=== PATIENT | female | born 1985 | race Two or more races ===

== ENCOUNTER 2016-06-11 19:38 | Emergency (ER) | payer MEDICAID ==
[~2016-06-11] VITALS: Ht 157.5 cm; Wt 86.2 kg
[2016-06-11 23:20] VITALS: BP 112/69
== END 2016-06-11 23:44 | disposition home or self-care (01) ==
LOC: ER 19:52
DX: H10.31 Unspecified acute conjunctivitis, right eye (principal)

== ENCOUNTER 2018-02-19 19:54 | Emergency (ER) | payer MEDICAID ==
[~2018-02-19] VITALS: Ht 157.5 cm; Wt 86.2 kg
[2018-02-19 22:37] VITALS: BP 141/72
== END 2018-02-19 22:48 | disposition home or self-care (01) ==
LOC: ER 20:03
DX: F41.9 Anxiety disorder, unspecified (principal); M79.602 Pain in left arm

== ENCOUNTER 2018-10-05 13:10 | Emergency (ER) | payer SELFPAY ==
[~2018-10-05] VITALS: Ht 157.5 cm; Wt 86.2 kg
[2018-10-05 16:02] VITALS: BP 160/73
== END 2018-10-05 17:31 | disposition home or self-care (01) ==
LOC: ER 13:10
DX: H10.021 Other mucopurulent conjunctivitis, right eye (principal)

== ENCOUNTER → 2020-06-16 | Outpatient (CLI) | payer OTHER | END | disposition home or self-care (01) | LOC: LAB 09:42 | PROVIDERS: ATTEND Preventive Medicine Preventive Medicine/Occupational Environmental Medicine | DX: Z02.1 Encounter for pre-employment examination (principal) | CPT/HCPCS: 36415; 86706; 86735; 86762; 86765; 86787 ==

== ENCOUNTER 2020-11-17 18:42 | Emergency (ER) | payer OTHER ==
[~2020-11-17] VITALS: Ht 157.5 cm; Wt 85.7 kg
[2020-11-17 21:31] VITALS: BP 140/86
[2020-11-17 22:19] LABS: Hepatitis B Surface Antibody Positive
[2020-11-17 22:31] LABS: Hepatitis B Surface Antigen Negative (Negative)
== END 2020-11-17 22:44 | disposition home or self-care (01) ==
LOC: ER 18:42
DX: S61.233A Puncture wound without foreign body of left middle finger without damage to nail, initial encounter (principal); W27.3XXA Contact with needle (sewing), initial encounter; Y93.89 Activity, other specified; Y92.89 Other specified places as the place of occurrence of the external cause; Y99.8 Other external cause status
CPT/HCPCS: 36415; 86703; 86706; 86803; 87340

== ENCOUNTER 2021-10-23 16:56 | Emergency (ER) | payer BC, OTHER ==
[~2021-10-23] VITALS: Ht 157.5 cm; Wt 85.3 kg
[2021-10-23] MEDS ORDERED: ALPRAZolam 0.5 MG TAB PO ONE (18:00)
[2021-10-23] MEDS ORDERED: ALPR0.25 PO (19:22)
[2021-10-23 20:18] VITALS: BP 141/84
== END 2021-10-23 20:20 | disposition home or self-care (01) ==
LOC: EEVIPCON 16:56 → ER 16:56
DX: F41.8 Other specified anxiety disorders (principal)
CPT/HCPCS: 71046; 93005

== ENCOUNTER 2022-03-30 07:39 | Emergency (ER) | payer BC ==
[~2022-03-30] VITALS: Ht 157.5 cm; Wt 82.4 kg
[~2022-03-30 07:39] MED LIST: ALPR0.25 PO
[2022-03-30 08:51] VITALS: BP 151/79
[2022-03-30] MEDS ORDERED: ALPRAZolam 0.5 MG TAB PO ONE (09:00)
[2022-03-30] MEDS ORDERED: KETOROLAC TROMETH 60MG/2ML VIAL IM ONE (09:00)
[2022-03-30] MEDS ORDERED: ALPR0.5T PO (09:56)
== END 2022-03-30 10:07 | disposition home or self-care (01) ==
LOC: ER 07:39
DX: F41.1 Generalized anxiety disorder (principal); Z98.51 Tubal ligation status
CPT/HCPCS: 96372; 99283; J1885

== ENCOUNTER → 2022-04-17 | Outpatient (CLI) | payer BC ==
[~2022-04-17] MED LIST changes: +ALPR0.5T PO
[2022-04-17 07:44] LABS: Basophils # (auto) 0.1 10 ^3/uL (0-0.2); Basophils % (auto) 0.9 % (0.0-2.0); Eosinophils # (auto) 0.2 10 ^3/uL (0-0.8); Eosinophils % (auto) 2.6 % (0.0-7.0); Hematocrit 37.2 % (36.0-46.0); Hemoglobin 12.4 g/dL (12.2-16.2); Lymphocytes % (auto) 17.1 % (10.0-50.0); Mean Corpuscular Hemoglobin 28.2 pg (28.0-32.0); Mean Corpuscular Hgb Conc. 33.4 g/dL (32.0-36.0); Mean Corpuscular Volume 84.5 fL (80.0-100.0); Monocytes # (auto) 0.7 10 ^3/uL (0-1.3); Monocytes % (auto) 11.6 % (0.0-12.0); Neutrophils # (auto) 4.1 10 ^3/uL (1.6-8.6); Neutrophils % (auto) 67.8 % (37.0-80.0); Nucleated Red Blood Cells % 0.1 %; Red Cell Distribution Width 14.7 % (11.8-14.3)
[2022-04-17 08:13] LABS: Albumin 3.5 g/dL (3.4-5.0); BUN/Creatinine Ratio 14.5; Calcium 8.6 mg/dL (8.5-10.1); Potassium 3.9 mmol/L (3.5-5.1)
[2022-04-17 08:15] LABS: Bilirubin, Total 0.3 mg/dL (0.2-1.0); Total Protein 7.9 g/dL (6.4-8.2)
== END | disposition home or self-care (01) ==
LOC: LAB 07:24
PROVIDERS: ATTEND Nurse Practitioner Family
DX: Z00.00 Encounter for general adult medical examination without abnormal findings (principal); F41.9 Anxiety disorder, unspecified
CPT/HCPCS: 36415; 80053; 84439; 84443; 85025

== ENCOUNTER → 2022-05-08 | Outpatient (CLI) | payer BC ==
[2022-05-08 08:01] LABS: Follicle Stimulating Hormone 5.97 IU/L (SEE BELOW); Leuteinizing Hormone 5.8 IU/L
== END | disposition home or self-care (01) ==
LOC: LAB 06:05
PROVIDERS: ATTEND Nurse Practitioner Family
DX: R68.82 Decreased libido (principal)
CPT/HCPCS: 82670; 83001; 83002

== ENCOUNTER 2022-09-02 16:09 | Emergency (ER) | payer BC ==
[~2022-09-02] VITALS: Ht 157.5 cm; Wt 83.4 kg
[2022-09-02] MEDS ORDERED: IBU600T PO (20:15)
[2022-09-02] MEDS ORDERED: KETOROLAC TROMETH 30 MG/ML 1ML VIAL IV ONE (20:15)
[2022-09-02] MEDS ORDERED: CYCL-839 PO (20:15)
[2022-09-02 20:30] VITALS: BP 158/96
== END 2022-09-02 20:52 | disposition home or self-care (01) ==
LOC: EEVIPCON 16:09 → ER 16:09
DX: S12.401A Unspecified nondisplaced fracture of fifth cervical vertebra, initial encounter for closed fracture (principal); S43.401A Unspecified sprain of right shoulder joint, initial encounter; S33.5XXA Sprain of ligaments of lumbar spine, initial encounter; F41.9 Anxiety disorder, unspecified; Z98.51 Tubal ligation status; Z98.890 Other specified postprocedural states; V89.2XXA Person injured in unspecified motor-vehicle accident, traffic, initial encounter; Y93.89 Activity, other specified; Y92.89 Other specified places as the place of occurrence of the external cause; Y99.8 Other external cause status
CPT/HCPCS: 72040; 72100; 72125; 73030; 96374; 99285; J1885; L0120

== ENCOUNTER 2025-02-28 16:39 | Inpatient (IN) | payer BC ==
[~2025-02-28] VITALS: Ht 157.5 cm; Wt 83.4 kg
[~2025-02-28 16:39] MED LIST changes: +CYCL-839 PO; +IBU600T PO
--- NOTE | 2025-02-28 16:54 | ECG ---
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
--- NOTE | 2025-02-28 17:29 | ED.PDOC ---
HPI Comments This is a 39 year old female presenting to the ED with chief complaint of chest pain. Patient reports that she has been experiencing left sided chest pressure with associated left arm pain since earlier today. Patient relays that her pain is currently a 6/10. Patient denies any N/V/D, SOB, dizziness, headache, cough, or syncope. Patient states she has been seen before for similar pain in the past. Chief Complaint: Chest Pain Time Seen by MD: 17:26 Primary Care Provider: ETHEL Aponte Notes: Nurses Notes, Medications, Allergies Allergies: Coded Allergies: NO KNOWN ALLERGIES (Unverified , 09/13/14) Home Meds Active Scripts Cyclobenzaprine Hcl (Cyclobenzaprine Hcl) 10 Mg Tab, 10 MG PO Q8HR, #20 TAB As needed for muscle spasm Prov:ALARCONMICHAELALDA Q CHOKE REAMER 09/02/22 Ibuprofen Micronized (MOTRIN TABLET) 600 Mg Tb, 600 MG PO Q6HR PRN, #30 TAB as neede for pain Prov:MICHAEL ALARCONALDA Q CHOKE REAMER 09/02/22 Alprazolam (Xanax) 0.5 Mg Tb, 1 TAB PO BID, #14 TAB Prov:JARVIS SWANSON 03/30/22 Alprazolam (Xanax) 0.25 Mg Tb, 1 TAB PO DAILY, #30 TAB Prov:OG CUADRA MD 10/23/21 Information Source: Patient Mode of Arrival: Ambulatory Severity: Moderate Timing: Hours Duration: Since onset Prehospital treatment: None Location: Chest (L) Radiation: Arm (L) Quality: Pressure Onset: At Rest PE Risk Factors: None History of: Similar pain in past Past Medical History PAST MEDICAL HISTORY: Anxiety Surgical History: , Tubal Ligation 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 WORKER 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: No Pertinent MUFFLE WORKER History Family History Family History: Reviewed,noncontributory to illness, Family hx of DM, Family hx of Cancer, Family hx of heart marly, Family hx of HTN Social History Smoker: Non-Smoker Alcohol: Rarely Drugs: Denies Drug Use Lives In: Home Constitutional: denies: chills, diaphoresis, fatigue, fever, malaise, sweats, weakness, others EENTM: denies: blurred vision, double vision, ear bleeding, ear discharge, ear drainage, ear pain, ear ringing, eye pain, eye redness, hearing loss, mouth pain, mouth swelling, nasal discharge, nose bleeding, nose congestion, nose pain, photophobia, tearing, throat pain, throat swelling, voice changes, others Respiratory: denies: cough, hemoptysis, orthopnea, SOB at rest, shortness of breath, SOB with excertion, stridor, wheezing, others Cardiovascular: reports: chest pain, left arm pain; denies: dizzy spells, diaphoresis, Dyspnea on exertion, edema, irregular heart beat, lightheadedness, palpitations, PND, syncope, others Gastrointestinal: denies: abdomen distended, abdominal pain, blood streaked bowels, constipated, diarrhea, dysphagia, difficulty swallowing, hematemesis, melena, nausea, poor appetite, poor fluid intake, rectal bleeding, rectal pain, vomiting, others Genitourinary: denies: abnormal vagina bleeding, burning, dyspareunia, dysuria, flank pain, frequency, hematuria, incontinence, pain, , vagina discharge, urgency, others Neurological: denies: dizziness, fainting, headache, left sided numbness, left sided weakness, numbness, paresthesia, pre-existing deficit, right sided numbness, right sided weakness, seizure, speech problems, tingling, tremors, weakness, others Musculoskeletal: denies: back pain, gout, joint pain, joint swelling, muscle pain, muscle stiffness, neck pain, others Integumetry: denies: bruises, change in color, change in hair/nails, dryness, laceration, lesions, lumps, rash, wounds, others Allergic/Immunocompromised: denies: Difficulty Healing, Frequent Infections, Hives, Itching, others Hematologic/Lymphatic: denies: anemia, blood clots, easy bleeding, easy bruising, swollen glands, others Endocrine: denies: excessive hunger, excessive sweating, excessive thirst, excessive urination, flushing, intolerance to cold, intolerance to heat, unexplained weight gain, unexplained weight loss, others Psychiatric: denies: anxiety, bipolar disorder, depression, hopeless, panic disorder, schizophrenia, sleepless, suicidal, others All Other Systems: Reviewed and Negative Physical Exam General Appearance: Moderate Distress HEENT: Normal ENT Inspection, Pharynx Normal, TMs Normal Neck: Full Range of Motion, Non-Tender, Normal, Normal Inspection Respiratory: Chest Non-Tender, Lungs Clear, No Accessory Muscle Use, No Respiratory Distress, Normal Breath Sounds Cardiovascular: No Edema, No JVD, No Murmur, No Gallop, Normal Peripheral Pulses, Regular Rate/Rhythm Breast Exam: Deferred Gastrointestinal: No Organomegaly, Non Tender, No Pulsatile Mass, Normal Bowel Sounds, Soft Genitalia: Deferred Pelvic: Deferred Rectal: Deferred Extremities: No calf tenderness, Normal capillary refill, Normal inspection, Normal range of motion, Non-tender, No pedal edema Musculoskeletal : Apperance: Normal Neurologic: Alert, field service manager II-XII nml as Tested, No Motor Deficits, Normal Affect, Normal Mood, No Sensory Deficits Cerebellar Function: Normal Reflexes: Normal Skin: Dry, Normal Color, Warm Lymphatic: No Adenopathy EKG EKG : Pulse Rate (adult): 67 [place]: Normal Cardiac Rhythm: NSR Block: None ST: Nonsp Was a procedure done? Was a procedure done?: No CP Differential Dx Differential Diagnosis: Angina, AR, Pulmonary Embolus Differential Diagnosis: CHF Differential Diagnosis: Pericarditis X-Ray, Labs, Meds, VS Vital Signs Date Time Temp Pulse Resp B/P (MAP) Pulse Ox O2 Delivery O2 Flow Rate FiO2 02/28/25 16:49 98.5 86 15 181/104 (129) 96 98.5 02/28/25 16:45 98.5 67 15 178/95 100 98.5 02/28/25 16:44 61 Lab Test 02/28/25 19:43 02/28/25 17:45 02/28/25 16:49 Range/Units Troponin I High Sensitivity Pending < 3 L < 3 L </=34 ng/L White Blood Count 8.3 4.4-10.8 10^3/uL Red Blood Count 4.18 4.0-5.20 10^6/uL Hemoglobin 11.0 L 12.2-16.2 g/dL Hematocrit 33.3 L 36.0-46.0 % Mean Corpuscular Volume 79.7 L 80.0-100.0 fL Mean Corpuscular Hemoglobin 26.3 L 28.0-32.0 pg Mean Corpuscular Hemoglobin Concent 33.0 32.0-36.0 g/dL Red Cell Distribution Width 15.6 H 11.8-14.3 % Platelet Count 356 140-450 10^3/uL Mean Platelet Volume 8.0 6.9-10.8 fL Neutrophils (%) (Auto) 51.2 37.0-80.0 % Lymphocytes (%) (Auto) 38.2 10.0-50.0 % Monocytes (%) (Auto) 8.4 0.0-12.0 % Eosinophils (%) (Auto) 1.5 0.0-7.0 % Basophils (%) (Auto) 0.7 0.0-2.0 % Neutrophils # (Auto) 4.2 1.6-8.6 10 ^3/uL Lymphocytes # (Auto) 3.2 0.4-5.4 10 ^3/uL Monocytes # (Auto) 0.7 0-1.3 10 ^3/uL Eosinophils # (Auto) 0.1 0-0.8 10 ^3/uL Basophils # (Auto) 0.1 0-0.2 10 ^3/uL Nucleated Red Blood Cells 0.3 % D-Dimer, Quantitative 0.48 0.0-0.49 mg/L FEU Sodium Level 141 136-145 mmol/L Potassium Level 4.0 3.5-5.1 mmol/L Chloride Level 107 98-107 mmol/L Carbon Dioxide Level 26 20-31 mmol/L Anion Gap 8 5-15 Blood Urea Nitrogen 9 9-23 mg/dL Creatinine 0.54 L 0.550-1.02 mg/dL Glomerular Filtration Rate Calc 119 >90 mL/min BUN/Creatinine Ratio 16.7 10.0-20.0 Serum Glucose 89 74-106 mg/dL Calcium Level 8.9 8.7-10.4 mg/dL Current Medications Medications (Trade) Dose Ordered Sig/Marcia Route Start Time Stop Time Status Last Admin Aspirin 162 mg ONCE ONCE PO 02/28/25 17:30 02/28/25 17:31 DC 02/28/25 17:47 The patient was given aspirin 162 mg by mouth The patient's CBC is within normal limits except for anemia with an 11 hemoglobin and hematocrit of 33.4 The patient's troponin x2 is negative The D-dimer is negative The patient was given an IV Hep-Lock The patient is being admitted to the hospitalist The patient is still having persistent chest pain so we are going to have a Cardiology consult as well. Images Reviewed?: Images reviewed and evaluated by me Time of 1ST Reevaluation: 19:52 Reevaluation 1ST: Unchanged Patient Education/Counseling: Diagnosis, Treatment, Prognosis Family Education/Counseling: No Family Present SEPSIS Sepsis Screen Date sepsis recognized/suspect: Feb 28, 2025 Time Sepsis recognized/suspect: 1648 Recent Procedure: No On Antibiotic Therapy: No Respiratory Rate >20: No Heart Rate >90: No Temp<36 C (96.8 F) or >38.3 C: No SBP <90 or MAP <65 mmHG: No New Acute Mental Status Change: No Is the patient on CPAP, BIPAP,: No Physician Orders Troponin-I Hs (02/28/25 19:43) Electrocardigram (02/28/25 19:43) Chest Two Views Routine (02/28/25 17:19) Vital Signs Date Time Temp Pulse Resp B/P (MAP) Pulse Ox O2 Delivery O2 Flow Rate FiO2 02/28/25 16:49 98.5 86 15 181/104 (129) 96 98.5 02/28/25 16:45 98.5 67 15 178/95 100 98.5 02/28/25 16:44 61 Laboratory Tests Test 02/28/25 16:49 White Blood Count 8.3 10^3/uL (4.4-10.8) Medications Medications Dose Ordered Sig/Marcia Route Start Time Stop Time Status Last Admin Dose Admin Aspirin 162 mg ONCE ONCE PO 02/28/25 17:30 02/28/25 17:31 DC 02/28/25 17:47 Departure 1 Departure Time of Disposition: 19:52 Impression: Primary Impression: Acute chest pain Additional Impression: Acute myocardial ischemia Disposition: 09 ADMITTED INPATIENT Admit to: Tele Condition: Fair Critical Care Note Critical Care Time?: Yes (45 min-critical care time only) Stability Stability form required: Yes Unstable for transfer: Telemetry monitoring (Telemetry monitoring required), ED Physician Assesment (Clinical assesment) Heart Score Heart Score: Heart Score Response (Comments) Value History Moderate Suspicious 1 EKG Normal 0 Age <45 0 Risk Factors No known risk factors 0 Troponin Normal limit 0 Total 1 I personally scribed for OG CUADRA MD ([email or web address]) on 02/28/25 at 17:29. Electronically submitted by Tai Peterson [email or web address]). OG CUADRA MD Feb 28, 2025 17:29
--- NOTE | 2025-02-28 17:32 | ECG ---
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
[2025-02-28 17:36] LABS: Potassium 4.0 mmol/L (3.5-5.1); Sodium 141 mmol/L (136-145)
[2025-02-28 17:37] LABS: Anion Gap 8 (5-15); Carbon Dioxide 26 mmol/L (20-31)
[2025-02-28 17:38] LABS: Calcium 8.9 mg/dL (8.7-10.4)
[2025-02-28 17:42] LABS: Glucose 89 mg/dL (74-106); Hematocrit 33.3 % (36.0-46.0); Hemoglobin 11.0 g/dL (12.2-16.2); Mean Corpuscular Hemoglobin 26.3 pg (28.0-32.0); Mean Corpuscular Volume 79.7 fL (80.0-100.0); Nucleated Red Blood Cells % 0.3 %
[2025-02-28 17:43] LABS: BUN/Creatinine Ratio 16.7 (10.0-20.0)
[2025-02-28 17:46] LABS: Blood Urea Nitrogen 9 mg/dL (9-23); Chloride 107 mmol/L (98-107)
--- NOTE | 2025-02-28 19:04 | DVH ---
XY CHEST TWO VIEWS ROUTINE CLINICAL HISTORY: CP COMPARISON: CHEST TWO VIEWS ROUTINE on DOS: 10/23/21, CXR2 on DOS: 10/23/21 TECHNIQUE: Frontal and lateral view of the chest was obtained FINDINGS: Lines and Tubes: None Lungs: No focal consolidation. Pleura: No effusion. No pneumothorax. Cardiomediastinal contours: Unremarkable Bones: No acute osseous abnormality. IMPRESSION: 1. No acute cardiopulmonary disease.
[2025-02-28] MEDS ORDERED: hydrOXYzine 25 MG TAB or CAP PO PRN (20:45)
[2025-02-28] MEDS ORDERED: ONDANSETRON HCL 4 MG/2 ML VIAL IV PRN (20:45)
[2025-02-28] MEDS ORDERED: HYDROcodone-ACET 5/325MG TAB PO PRN (20:45)
[2025-02-28 21:08] LABS: Alanine Aminotransferase 17 U/L (7-40); Albumin 4.5 g/dL (3.2-4.8); Alkaline Phosphatase 79 U/L (46-116); Magnesium 1.9 mg/dL (1.6-2.6); Total Protein 8.0 g/dL (5.7-8.2)
[2025-02-28 21:09] LABS: Bilirubin, Direct < 0.1 mg/dL (<0.3); Bilirubin, Total 0.2 mg/dL (0.2-1.0)
[2025-02-28] MEDS: LOSARTAN POTASSIUM 25 MG TAB PO ONE (22:21)
--- NOTE | 2025-02-28 22:50 | DVHINCON2 ---
Date of service: Feb 28, 2025 Referring Physician Blaire Reason for Consultation Chest pain History of Present Illness This is a 39 year old female with a PMH of anxiety who presented to the ED with a complaint of chest pain. Patient reports that she has been experiencing left sided chest pressure with associated left arm pain since earlier today. Patient relays that her pain is currently a 6/10. Patient states she has been seen before for similar pain in the past. TROP is negative. EKG is NSR at 67.Chest x- ray showed NAD. Patient was admitted to the hospital. I am asked to consult on this patient. Allergies: Coded Allergies: NO KNOWN ALLERGIES (Unverified , 09/13/14) Home Meds Active Scripts Cyclobenzaprine Hcl (Cyclobenzaprine Hcl) 10 Mg Tab, 10 MG PO Q8HR, #20 TAB As needed for muscle spasm Prov:RACHEL ALARCONA Q CERTIFIED SCRUM MASTER 09/02/22 Ibuprofen Micronized (MOTRIN TABLET) 600 Mg Tb, 600 MG PO Q6HR PRN, #30 TAB as neede for pain Prov:JOSÉ LUIS ALARCON Q CERTIFIED SCRUM MASTER 09/02/22 Alprazolam (Xanax) 0.5 Mg Tb, 1 TAB PO BID, #14 TAB Prov:JARVIS SWANSON 03/30/22 Alprazolam (Xanax) 0.25 Mg Tb, 1 TAB PO DAILY, #30 TAB Prov:OG CUADRA MD 10/23/21 Current Medications Current Medications Medications (Trade) Dose Ordered Sig/Marcia Route PRN Reason Start Time Stop Time Status Last Admin Acetaminophen/ Hydrocodone Bitart ([place] 5/325MG Tab) 1 tab Q4HP PRN PO MODERATE PAIN (4-6 PAIN SCALE) 02/28/25 20:45 Ondansetron HCl (Zofran) 4 mg Q4HP PRN IV NAUSEA / VOMITING 02/28/25 20:45 Acetaminophen (Tylenol Tablet) 650 mg Q6HP PRN PO PAIN SCALE 1-3 OR TEMP>100.4 02/28/25 20:45 Losartan Potassium (Cozaar Tablet) 25 mg DAILY PO 03/01/25 10:00 Hydralazine HCl (Apresoline Injection) 10 mg Q6HP PRN IV SBP>170 02/28/25 20:45 Hydroxyzine Pamoate (Vistaril Oral) 25 mg Q6HP PRN PO FOR ITCHING 02/28/25 20:45 Review of Systems Constitutional: denies: chills, diaphoresis, fatigue, fever, malaise, sweats, weakness, others EENTM: denies: blurred vision, double vision, ear bleeding, ear discharge, ear drainage, ear pain, ear ringing, eye pain, eye redness, hearing loss, mouth pain, mouth swelling, nasal discharge, nose bleeding, nose congestion, nose pain, photophobia, tearing, throat pain, throat swelling, voice changes, others Respiratory: denies: cough, hemoptysis, orthopnea, SOB at rest, shortness of breath, SOB with excertion, stridor, wheezing, others Cardiovascular: reports: chest pain, left arm pain; denies: dizzy spells, diaphoresis, Dyspnea on exertion, edema, irregular heart beat, lightheadedness, palpitations, PND, syncope, others Gastrointestinal: denies: abdomen distended, abdominal pain, blood streaked bowels, constipated, diarrhea, dysphagia, difficulty swallowing, hematemesis, melena, nausea, poor appetite, poor fluid intake, rectal bleeding, rectal pain, vomiting, others Genitourinary: denies: abnormal vagina bleeding, burning, dyspareunia, dysuria, flank pain, frequency, hematuria, incontinence, pain, , vagina discharge, urgency, others Neurological: denies: dizziness, fainting, headache, left sided numbness, left sided weakness, numbness, paresthesia, pre-existing deficit, right sided numbness, right sided weakness, seizure, speech problems, tingling, tremors, weakness, others Musculoskeletal: denies: back pain, gout, joint pain, joint swelling, muscle pain, muscle stiffness, neck pain, others Integumetry: denies: bruises, change in color, change in hair/nails, dryness, laceration, lesions, lumps, rash, wounds, others Allergic/Immunocompromised: denies: Difficulty Healing, Frequent Infections, Hives, Itching, others Hematologic/Lymphatic: denies: anemia, blood clots, easy bleeding, easy bruising, swollen glands, others Endocrine: denies: excessive hunger, excessive sweating, excessive thirst, excessive urination, flushing, intolerance to cold, intolerance to heat, unexp lained weight gain, unexplained weight loss, others Psychiatric: denies: anxiety, bipolar disorder, depression, hopeless, panic disorder, schizophrenia, sleepless, suicidal, others All Other Systems: Reviewed and Negative Vital Signs Vital Signs Date Time Temp Pulse Resp B/P (MAP) Pulse Ox O2 Delivery O2 Flow Rate FiO2 02/28/25 20:35 97.9 66 17 178/88 (118) 100 97.9 Physical Exam GENERAL: Alert and oriented x 3. No acute distress. EYES: PERRL, EOMI. Anicteric. HENT: Moist mucous membranes. LUNGS: Clear to auscultation bilaterally. CARDIOVASCULAR: Regular rate and rhythm. ABDOMEN: Soft, nontender and nondistended. EXTREMITIES: No edema. NEUROLOGIC: No focal neurological deficits. SKIN: Warm, dry. Labs/Diagnostic Data Labs Test 02/28/25 19:43 02/28/25 16:49 Range/Units Magnesium Level 1.9 1.6-2.6 mg/dL Total Bilirubin 0.2 0.2-1.0 mg/dL Direct Bilirubin < 0.1 <0.3 mg/dL Aspartate Amino Transferase (AST) 17 13-40 U/L Alanine Aminotransferase (ALT) 17 7-40 U/L Alkaline Phosphatase 79 46-116 U/L Troponin I High Sensitivity < 3 L </=34 ng/L Total Protein 8.0 5.7-8.2 g/dL Albumin 4.5 3.2-4.8 g/dL White Blood Count 8.3 4.4-10.8 10^3/uL Red Blood Count 4.18 4.0-5.20 10^6/uL Hemoglobin 11.0 L 12.2-16.2 g/dL Hematocrit 33.3 L 36.0-46.0 % Mean Corpuscular Volume 79.7 L 80.0-100.0 fL Mean Corpuscular Hemoglobin 26.3 L 28.0-32.0 pg Mean Corpuscular Hemoglobin Concent 33.0 32.0-36.0 g/dL Red Cell Distribution Width 15.6 H 11.8-14.3 % Platelet Count 356 140-450 10^3/uL Mean Platelet Volume 8.0 6.9-10.8 fL Neutrophils (%) (Auto) 51.2 37.0-80.0 % Lymphocytes (%) (Auto) 38.2 10.0-50.0 % Monocytes (%) (Auto) 8.4 0.0-12.0 % Eosinophils (%) (Auto) 1.5 0.0-7.0 % Basophils (%) (Auto) 0.7 0.0-2.0 % Neutrophils # (Auto) 4.2 1.6-8.6 10 ^3/uL Lymphocytes # (Auto) 3.2 0.4-5.4 10 ^3/uL Monocytes # (Auto) 0.7 0-1.3 10 ^3/uL Eosinophils # (Auto) 0.1 0-0.8 10 ^3/uL Basophils # (Auto) 0.1 0-0.2 10 ^3/uL Nucleated Red Blood Cells 0.3 % D-Dimer, Quantitative 0.48 0.0-0.49 mg/L FEU Sodium Level 141 136-145 mmol/L Potassium Level 4.0 3.5-5.1 mmol/L Chloride Level 107 98-107 mmol/L Carbon Dioxide Level 26 20-31 mmol/L Anion Gap 8 5-15 Blood Urea Nitrogen 9 9-23 mg/dL Creatinine 0.54 L 0.550-1.02 mg/dL Glomerular Filtration Rate Calc 119 >90 mL/min BUN/Creatinine Ratio 16.7 10.0-20.0 Serum Glucose 89 74-106 mg/dL Calcium Level 8.9 8.7-10.4 mg/dL Assessment Chest pain. Anxiety. Plan/Recommendation I agree with your ongoing assessment and care of plan. Echocardiogram. [place] for pain management. IV Hydralazine for SBP >170. Losartan. Additional plan as per the hospital course. A total of 45 minutes was spent reviewing the patient record, examining the patient, making a diagnostic and therapeutic plan, discussing this plan with medical personnel, following up on diagnostic studies and following the patient for clinical stability excluding any and all procedures. At least 50% of this time was spent in direct, [id number]-[id number] contact. Plan discussed with: Patient LIN VICKERS MD Feb 28, 2025 21:40
[2025-02-28 23:07] VITALS: BP 166/92; PULSE 56; RESP 17; TEMP 98.1; O2SAT 100
[2025-02-28] MEDS: hydrALAZINE HCL 20 MG/ML VL IV PRN (23:29)
[2025-02-28 23:30] VITALS: PULSE 100; RESP 18; O2SAT 99
[2025-03-01] VITALS (8 sets, daily range): BP systolic 120–137; BP diastolic 67–90; PULSE 55–79; RESP 16–18; TEMP 97.7–98.3; O2SAT 97–100
--- NOTE | 2025-03-01 01:46 | DVHHPRES ---
History of Present Illness Resident Creating Document: DMITRY CABRERA RESIDENT History of Present Illness 39-year-old female with a past medical history of anxiety has come to the emergency department due to chest pain from 3:00 p.m. today(02/28/2025). Patient reports that she was sitting down when she had acute substernal dull a cristina pain, lasting 15 minutes, 5 /10 in intensity, radiating to the left shoulder with no aggravating or relieving factors. She denies any shortness of breath, nausea, vomiting, change of medication, fever, chills but admits to a new stressor in her life which has been taking a toll on her health. Patient was given aspirin in the emergency department which she reports did not help and the chest pain has been intermittent since the afternoon. Blood pressure on admission was 181/104 mmHg, temp 98.5, HR 67, SpO2 96% in room air. D-dimer was negative, troponins were negative and chest x-ray showed no acute cardiopulmonary changes. We are admitting the patient for hypertensive urgency and further management. Past medical history: anxiety Past surgical history: Tubal ligation, CS x4 Social history: Patient denies smoking, drinking alcohol or taking any illicit drugs Family history: Reviewed and noncontributory to the management of this case PCP: Dr. Evelyn Pritchard Allergies: None Code status: Full code Review of Systems Constitutional: No: Fever, Chills, Sweats, Weakness, Malaise, Other Eyes: No: Pain, Vision change, Conjunctivae inflammation, Eyelid inflammation, Other, Redness ENT: No: Ear pain, Ear discharge, Nose pain, Nose discharge, Nose congestion, Mouth pain, Mouth swelling, Throat pain, Throat swelling, Other Respiratory: No: Cough, Dry, Shortness of breath, SOB with excertion, Wheezing, Hemoptysis, Pleuritic Pain, Sputum, Wheezing, Other Cardiovascular: Chest Pain; No: Palpitations, Orthopnea, Paroxysmal Noc. Dyspnea, Edema, Lt Headedness, Other Gastrointestinal: No: Nausea, Vomiting, Abdominal Pain, Diarrhea, Constipation, Melena, Hematochezia, Other Genitourinary: No Dysuria, No Frequency, No Incontinence, No Hematuria, No Retention, No Other Skin: No: Rash, Lesions, Jaundice, Bruising, Other Neurological: No: Weakness, Numbness, Incoordination, Change in speech, Confusion, Seizures, Other Allergies: Coded Allergies: NO KNOWN ALLERGIES (Unverified , 09/13/14) Medications Current Medications Medications Dose Ordered Sig/Marcia Route Start Time Stop Time Status Last Admin Dose Admin Acetaminophen/ Hydrocodone Bitart 1 tab Q4HP PRN PO 02/28/25 20:45 Ondansetron HCl 4 mg Q4HP PRN IV 02/28/25 20:45 Acetaminophen 650 mg Q6HP PRN PO 02/28/25 20:45 Losartan Potassium 25 mg DAILY PO 03/01/25 10:00 Hydralazine HCl 10 mg Q6HP PRN IV 02/28/25 20:45 02/28/25 23:29 10 MG Hydroxyzine Pamoate 25 mg Q6HP PRN PO 02/28/25 20:45 Exam Vital Signs Vital Signs Date Time Temp Pulse Resp B/P (MAP) Pulse Ox O2 Delivery O2 Flow Rate FiO2 03/01/25 01:00 98.0 58 17 135/76 (95) 100 98.0 Exam General Appearance: Alert, Oriented X3, Cooperative, Not in acute distress HEENT: Atraumatic, Mucous membranes moist/pink Respiratory: Clear to auscultation, Normal air movement, No added sounds Cardiovascular: Regular rate, Normal S1, Normal S2, No murmurs Abdominal: Active bowel sounds, Soft, no distention, no tenderness Extremities: No edema, Normal pulses, No tenderness/swelling Skin: No Significant rash, except past surgical scars Neuro: Normal speech, sensorimotor deficits none Psych/Mental Status: Mental status NL, Mood NL Labs/Xrays Labs Test 02/28/25 19:43 02/28/25 16:49 Range/Units Magnesium Level 1.9 1.6-2.6 mg/dL Total Bilirubin 0.2 0.2-1.0 mg/dL Direct Bilirubin < 0.1 <0.3 mg/dL Aspartate Amino Transferase (AST) 17 13-40 U/L Alanine Aminotransferase (ALT) 17 7-40 U/L Alkaline Phosphatase 79 46-116 U/L Troponin I High Sensitivity < 3 L </=34 ng/L Total Protein 8.0 5.7-8.2 g/dL Albumin 4.5 3.2-4.8 g/dL Beta HCG, Quantitative < 0.0 L 1.5-4.2 mIU/mL White Blood Count 8.3 4.4-10.8 10^3/uL Red Blood Count 4.18 4.0-5.20 10^6/uL Hemoglobin 11.0 L 12.2-16.2 g/dL Hematocrit 33.3 L 36.0-46.0 % Mean Corpuscular Volume 79.7 L 80.0-100.0 fL Mean Corpuscular Hemoglobin 26.3 L 28.0-32.0 pg Mean Corpuscular Hemoglobin Concent 33.0 32.0-36.0 g/dL Red Cell Distribution Width 15.6 H 11.8-14.3 % Platelet Count 356 140-450 10^3/uL Mean Platelet Volume 8.0 6.9-10.8 fL Neutrophils (%) (Auto) 51.2 37.0-80.0 % Lymphocytes (%) (Auto) 38.2 10.0-50.0 % Monocytes (%) (Auto) 8.4 0.0-12.0 % Eosinophils (%) (Auto) 1.5 0.0-7.0 % Basophils (%) (Auto) 0.7 0.0-2.0 % Neutrophils # (Auto) 4.2 1.6-8.6 10 ^3/uL Lymphocytes # (Auto) 3.2 0.4-5.4 10 ^3/uL Monocytes # (Auto) 0.7 0-1.3 10 ^3/uL Eosinophils # (Auto) 0.1 0-0.8 10 ^3/uL Basophils # (Auto) 0.1 0-0.2 10 ^3/uL Nucleated Red Blood Cells 0.3 % D-Dimer, Quantitative 0.48 0.0-0.49 mg/L FEU Sodium Level 141 136-145 mmol/L Potassium Level 4.0 3.5-5.1 mmol/L Chloride Level 107 98-107 mmol/L Carbon Dioxide Level 26 20-31 mmol/L Anion Gap 8 5-15 Blood Urea Nitrogen 9 9-23 mg/dL Creatinine 0.54 L 0.550-1.02 mg/dL Glomerular Filtration Rate Calc 119 >90 mL/min BUN/Creatinine Ratio 16.7 10.0-20.0 Serum Glucose 89 74-106 mg/dL Calcium Level 8.9 8.7-10.4 mg/dL B-Type Natriuretic Peptide 28.65 0-100 pg/mL SEPSIS Sepsis Screen Date sepsis recognized/suspect: Feb 28, 2025 Time Sepsis recognized/suspect: 1647 Recent Procedure: No On Antibiotic Therapy: No Respiratory Rate >20: No Heart Rate >90: No Temp<36 C (96.8 F) or >38.3 C: No SBP <90 or MAP <65 mmHG: No New Acute Mental Status Change: No Is the patient on CPAP, BIPAP,: No Physician Orders Admit (02/28/25 20:35) Code Status (02/28/25 20:35) Hydrocodone-Acet 5/325mg Tab ([place] 5/32 (02/28/25 20:45) Ondansetron Hcl (Zofran) (02/28/25 20:45) Complete Blood Count (03/01/25 04:00) Comprehensive Metabolic Panel (03/01/25 04:00) Cardiac Diet-2gna,Lofat,Lochol (03/01/25 Breakfast) Echo 2d Mode Cardiac Dop (02/28/25 20:35) Condition: Fair (02/28/25 20:35) Acetaminophen Tablet (Tylenol Tablet) (02/28/25 20:45) Notify Md Of Changes From Base (02/28/25 20:35) Confectionery Cooker For 24 Hours (02/28/25 20:35) Emergency Dysrhythmia Protocol (02/28/25 20:35) Losartan Tablet (Cozaar Tablet) (03/01/25 10:00) Hydralazine Injection (Apresoline Inject (02/28/25 20:45) Urinalysis (02/28/25 20:35) * Cardiology Consult (02/28/25 20:35) Hydroxyzine Oral (Vistaril Oral) (02/28/25 20:45) Vital Signs Date Time Temp Pulse Resp B/P (MAP) Pulse Ox O2 Delivery O2 Flow Rate FiO2 03/01/25 01:00 98.0 58 17 135/76 (95) 100 98.0 02/28/25 23:29 166/92 02/28/25 23:07 98.1 56 17 166/92 (116) 100 98.1 02/28/25 22:21 159/107 02/28/25 20:35 97.9 66 17 178/88 (118) 100 97.9 02/28/25 19:54 67 Laboratory Tests Test 02/28/25 16:49 White Blood Count 8.3 10^3/uL (4.4-10.8) Medications Medications Dose Ordered Sig/Marcia Route Start Time Stop Time Status Last Admin Dose Admin Aspirin 162 mg ONCE ONCE PO 02/28/25 17:30 02/28/25 17:31 DC 02/28/25 17:47 162 MG Hydralazine HCl 10 mg Q6HP PRN IV 02/28/25 20:45 02/28/25 23:29 10 MG Losartan Potassium 25 mg ONCE ONCE PO 02/28/25 20:45 02/28/25 21:12 DC 02/28/25 22:21 25 MG Assessment/Plan Assessment/Plan #Hypertensive urgency #Chest pain due to above -Troponins negative -EKG -telemetry -UA -D-dimer 0.48 -BNP 28.65 -beta-hCG negative -Aspirin 162 mg p.o. once -Pain control with: -acetaminophen 650 mg p.o. q.6 PRN for mild pain -[place] 5/325 mg p.o. q.4 PRN for moderate pain -losartan 25 mg p.o. daily -hydralazine 10 mg IV q.6 PRN SBP> 170 mmHg -echo -Cardiac consult DVT prophylaxis: Lovenox 40 mg subcutaneously daily Diet: Cardiac diet Goals of care discussed with the patient for more than 27 minutes: Full code status Case discussed with Dr. Todd, patient Plan discussed with: Patient My Orders Orders - DMITRY CABRERA RESIDENT Procedure Category Date Status Time Admit ADMIT 02/28/25 Transmitted 20:35 Code Status CODE 02/28/25 Transmitted 20:35 Hydrocodone-Acet PHA 02/28/25 In Process 5/325mg Tab ([place] 20:45 Ondansetron Hcl PHA 02/28/25 In Process (Zofran) 20:45 Complete Blood Count LAB 03/01/25 Logged 04:00 Comprehensive LAB 03/01/25 Logged Metabolic Panel 04:00 Cardiac DIET 03/01/25 Transmitted Diet-2gna,Lofat,Lochol Breakfast Echo 2d Mode Cardiac US 02/28/25 Logged DOP 20:35 Condition: Fair JESSE 02/28/25 In Process 20:35 Acetaminophen Tablet PHA 02/28/25 In Process (Tylenol Tablet) 20:45 Notify Md Of Changes JESSE 02/28/25 In Process From Base 20:35 Confectionery Cooker For [facility] 02/28/25 In Process 24 Hours 20:35 Emergency Dysrhythmia JESSE 02/28/25 In Process Protocol 20:35 Losartan Tablet PHA 03/01/25 In Process (Cozaar Tablet) 10:00 Hydralazine Injection PHA 02/28/25 In Process (Apresoline Inject 20:45 Urinalysis LAB 02/28/25 Logged 20:35 * Cardiology Consult CONS 02/28/25 Transmitted 20:35 Hydroxyzine Oral PHA 02/28/25 In Process (Vistaril Oral) 20:45 Date of Service: Mar 01, 2025 Billing Provider: CHRISTIAN TODD MD Common Visit Codes: [id number] INP/OBS CARE (HIGH) Secondary Visit Codes: [id number] CARE PLAN 30 MINUTES DMITRY CABRERA RESIDENT Mar 01, 2025 01:46
[2025-03-01 04:15] LABS: Urine Protein, UAD Negative (Negative)
[2025-03-01 06:56] LABS: Hemoglobin 10.9 g/dL (12.2-16.2)
[2025-03-01 06:58] LABS: Hematocrit 33.1 % (36.0-46.0); Mean Corpuscular Hemoglobin 26.4 pg (28.0-32.0); Mean Corpuscular Volume 80.4 fL (80.0-100.0); Nucleated Red Blood Cells % 0.1 %
[2025-03-01 07:16] LABS: Alanine Aminotransferase 14 U/L (7-40); Alkaline Phosphatase 67 U/L (46-116); Anion Gap 8 (5-15); BUN/Creatinine Ratio 9.4 (10.0-20.0); Carbon Dioxide 25 mmol/L (20-31); Glucose 96 mg/dL (74-106); Potassium 4.4 mmol/L (3.5-5.1); Sodium 140 mmol/L (136-145); Total Protein 6.9 g/dL (5.7-8.2)
[2025-03-01 07:17] LABS: Albumin 3.9 g/dL (3.2-4.8)
[2025-03-01 07:19] LABS: Bilirubin, Total 0.3 mg/dL (0.2-1.0); Blood Urea Nitrogen 6 mg/dL (9-23); Calcium 8.3 mg/dL (8.7-10.4); Chloride 107 mmol/L (98-107)
[2025-03-01] MEDS: LOSARTAN POTASSIUM 25 MG TAB PO SCH (10:07)
[2025-03-01] MEDS: ACETAMINOPHEN 325 MG TAB PO PRN (11:55)
--- NOTE | 2025-03-01 15:59 | DVHPNRES ---
Progress Note Date Seen: Mar 01, 2025 Resident Creating Document: CHELSEA ALMARAZ RESIDENT Medical Necessity Reason Pt with a Central, PICC or Fol: No Subjective Review of Systems Freddy León is a 39-year-old female with past medical history of anxiety and hypertension came with complaints of chest pain since 1 day. She rated the chest pain 6 on 10 in intensity, dull, radiating to bilateral shoulders and jaw with no aggravating or alleviating factors. She denies any fever or shortness of breath. She states has been having a lot of anxiety in the past week. She also reports of concomitant acid reflux while she was in the ER. Her blood pressure was 180/100 in the ER. PMHx:anxiety and hypertension PSHx: section, tubal ligation Family history: Not relevant Social history: Denies smoking, alcohol use, illicit drug use Home medication: Not on any home medication Allergic history: No known allergies General: patient denies fever, fatigue, weaknes, sweating, any recent changes in appetite and weight HEENT: No headaches, visiual changes, hearing loss, tinnitus, nasal congestion and discharge, and sore throat. Cardiovascular: Denies palpitations, dyspnea on exertion, orthopnea, or claudication. Complains of chest pain Respiratory: No cough, and wheezing. Gastrointestinal: Denies nausea, vomiting, dysphagia, odynophagia, heartburn, abdominal pain, flatulence, bloating, diarrhea, constipation, change in stool, or blood in stool. Genitourinary: No dysuria, hematuria, discharge, frequency, urgency, nocturia, incontinence, and urinary retention. Endocrine: No heat or cold intolerance, polydipsia, polyuria, and polyphagia. Neurological: No dizziness, extremity weakness and numbness, tremors, gait disturbance, seizures, and memory impairment. Psychiatric: Denies depression, anxiety,or insomnia. Musculoskeletal: Denies neck pain, stiffness and swelling, back pain, muscle weakness, joint pain, stiffness, swelling, or limited range of motion. Skin: No rashes, itching, skin lesion, changes in hair, nail, skin texture and breast. Hematologic/Lymphatic: Denies easy bruising, bleeding tendencies, or lymph node enlargement. Objective vital signs Vital Sign Date Time Temp Pulse Resp B/P (MAP) Pulse Ox O2 Delivery O2 Flow Rate FiO2 03/01/25 13:00 98.0 63 16 137/90 (106) 97 98.0 03/01/25 07:30 Room Air* 0 21 Total Intake and Output 02/28/25 02/28/25 03/01/25 15:00 23:00 07:00 Intake Total 0 ml Balance 0 ml medications Current Medications Medications Dose Ordered Sig/Marcia Route Start Time Stop Time Status Last Admin Dose Admin Acetaminophen/ Hydrocodone Bitart 1 tab Q4HP PRN PO 02/28/25 20:45 Ondansetron HCl 4 mg Q4HP PRN IV 02/28/25 20:45 Acetaminophen 650 mg Q6HP PRN PO 02/28/25 20:45 03/01/25 11:55 650 MG Losartan Potassium 25 mg DAILY PO 03/01/25 10:00 03/01/25 10:07 25 MG Hydralazine HCl 10 mg Q6HP PRN IV 02/28/25 20:45 02/28/25 23:29 10 MG Hydroxyzine Pamoate 25 mg Q6HP PRN PO 02/28/25 20:45 Examination General Appearance: Alert, Oriented X3, Cooperative, No acute distress HEENT: Atraumatic, PERRLA, EOMI, Mucous membrane moist/pink Respiratory: Clear to auscultation, Normal air movement Cardiovascular: Regular rate, Normal S1, Normal S2, No murmurs, no chest wall tenderness Abdominal: Normal bowel sounds, Soft, No tenderness, No hepatospenomegaly, No masses Extremities: No clubbing, No cyanosis, No edema, Normal pulses, No tenderness/swelling Skin: No rashes, No breakdown, No significant lesion Neuro: Normal gait, Normal speech, Strength at 5/5 X4 ext, Normal tone, Sensation intact, Cranial nerves 3-12 NL, Reflexes 2+ Psych/Mental Status: Mental status NL, Mood NL laboratory and microbiology Laboratory Tests 03/01/25 06:22 Test 03/01/25 06:22 Range/Units Serum Glucose 96 74-106 mg/dL Problem List/Assessment/Plan Problem List/Assessment/Plan Assessment/Plan #Hypertensive urgency #Chest pain due to above -Troponins negative -EKG : no signs of infarction -telemetry -UA -D-dimer 0.48 -BNP 28.65 -beta-hCG negative -Aspirin 162 mg p.o. once -Pain control with: -acetaminophen 650 mg p.o. q.6 PRN for mild pain -[place] 5/325 mg p.o. q.4 PRN for moderate pain -losartan 25 mg p.o. daily -hydralazine 10 mg IV q.6 PRN SBP> 170 mmHg -echo -Cardiac consult # Anxiety disorder Follow up with PCP on discharge DVT prophylaxis: Lovenox 40 mg subcutaneously daily Diet: Cardiac diet Case Discussed with Dr. Whiting Plan discussed with: Patient My Orders My Orders Orders - CHELSEA ALMARAZ Procedure Category Date Status Time Complete Blood Count LAB 03/02/25 Verified 04:00 Comprehensive LAB 03/02/25 Verified Metabolic Panel 04:00 Date of Service: Mar 01, 2025 Billing Provider: DELON WHITING MD Common Visit Codes: [id number] INP/OBS CARE(HIGH) CHELSEA ALMARAZ RESIDENT Mar 01, 2025 15:59 DELON WHITING MD Mar 01, 2025 21:13
--- NOTE | 2025-03-01 20:11 | DVHSR ---
APPROVED REPORT EXAM: Two-dimensional and M-mode echocardiogram with Doppler and color Doppler. Blood Pressure: 125/67 mmHg INDICATION Chest Pain RISK FACTORS Height: 5'2, Weight: 182 DIMENSIONS LVDd4.8 (3.8-5.7cm)LA (2D)3.8 (1.9-4.0cm)Aortic Root2.7 (2.0-3.7cm) LVDs3.3 (2.5-4.0cm)LA (MM) (1.9-4.0cm)Aortic Cusp Exc1.7 (1.5-2.0cm) EF (%) 60.0 (55-70%)Rt. Atrium3.0 (1.9-4.0cm)Asc. Aorta cm IVSd0.7 (0.7-1.1cm)RV (D)3.5 (1.8-2.4cm) PWd0.8 (0.7-1.1cm) Mitral Valve MitralMitral Stenosis E wave0.77m/sMV Mean GR.mmHg A wave0.65m/sMV Peak GR.39mmHg E/A ratio1.22D MVAcm2 DECEL [id number] 1/2 [place] Aortic Valve Aortic ValveAortic Stenosis V10.88m/[place] Mean GR.5mmHg V21.42m/[place] Peak GR.8mmHg LVOT Diameter2.0 (1.8-2.4cm)Doppler AVA1.95cm2 Pulmonic Valve V20.93m/s Other Information Technically limited study due to body habitus. Conclusion LV EF IS 65% NORMAL VALVES NORMAL RV FUNCTION NO EFFUSION
--- NOTE | 2025-03-01 23:38 | DVHPN2 ---
Progress Note - Dictate Date Seen: Mar 01, 2025 Medical Necessity Reason Pt with a Central, PICC or Fol: No Subjective Patient was seen and evaluated in follow up. Patient is c/o a headache. UA is negative for infection. Echocardiogram shows LV EF of 65%. Telemetry reviewed. vital signs Vital Sign Date Time Temp Pulse Resp B/P (MAP) Pulse Ox O2 Delivery O2 Flow Rate FiO2 03/01/25 21:00 98.3 79 18 132/76 (94) 98 98.3 03/01/25 07:30 Room Air* 0 21 Total Intake and Output 02/28/25 02/28/25 03/01/25 15:00 23:00 07:00 Intake Total 0 ml Balance 0 ml medications Current Medications Medications Dose Ordered Sig/Marcia Route Start Time Stop Time Status Last Admin Dose Admin Acetaminophen/ Hydrocodone Bitart 1 tab Q4HP PRN PO 02/28/25 20:45 Ondansetron HCl 4 mg Q4HP PRN IV 02/28/25 20:45 Acetaminophen 650 mg Q6HP PRN PO 02/28/25 20:45 03/01/25 19:52 650 MG Losartan Potassium 25 mg DAILY PO 03/01/25 10:00 03/01/25 10:07 25 MG Hydralazine HCl 10 mg Q6HP PRN IV 02/28/25 20:45 02/28/25 23:29 10 MG Hydroxyzine Pamoate 25 mg Q6HP PRN PO 02/28/25 20:45 objective GENERAL: Alert and oriented x 3. No acute distress. EYES: PERRL, EOMI. Anicteric. HENT: Moist mucous membranes. LUNGS: Clear to auscultation bilaterally. CARDIOVASCULAR: Regular rate and rhythm. ABDOMEN: Soft, nontender and nondistended. EXTREMITIES: No edema. NEUROLOGIC: No focal neurological deficits. SKIN: Warm, dry. laboratory and microbiology Laboratory Tests 03/01/25 06:22 Test 03/01/25 06:22 Range/Units Serum Glucose 96 74-106 mg/dL Problem List Chest pain. Anxiety. Assessment/Plan Continued all current supportive medical care. [place] for pain management. IV Hydralazine for SBP >170. Losartan. Additional plan as per the hospital course. Plan discussed with: Patient LIN VICKERS MD Mar 01, 2025 23:38
[2025-03-02] VITALS (8 sets, daily range): BP systolic 105–130; BP diastolic 69–86; PULSE 63–85; RESP 18–20; TEMP 97.1–98.4; O2SAT 97–98
[2025-03-02 07:25] LABS: Hemoglobin 12.1 g/dL (12.2-16.2); Mean Corpuscular Volume 80.0 fL (80.0-100.0)
[2025-03-02 07:27] LABS: Hematocrit 37.4 % (36.0-46.0); Mean Corpuscular Hemoglobin 25.9 pg (28.0-32.0); Nucleated Red Blood Cells % 0.1 %
[2025-03-02 07:44] LABS: Alanine Aminotransferase 17 U/L (7-40); Alkaline Phosphatase 74 U/L (46-116); Anion Gap 10 (5-15); BUN/Creatinine Ratio 14.1 (10.0-20.0); Calcium 9.0 mg/dL (8.7-10.4); Carbon Dioxide 25 mmol/L (20-31); Chloride 105 mmol/L (98-107); Glucose 91 mg/dL (74-106); Potassium 4.3 mmol/L (3.5-5.1); Sodium 140 mmol/L (136-145); Total Protein 7.8 g/dL (5.7-8.2)
[2025-03-02 07:45] LABS: Albumin 4.3 g/dL (3.2-4.8); Blood Urea Nitrogen 9 mg/dL (9-23)
[2025-03-02 07:46] LABS: Bilirubin, Total 0.4 mg/dL (0.2-1.0)
--- NOTE | 2025-03-02 16:14 | DVHPNRES ---
Progress Note Date Seen: Mar 02, 2025 Resident Creating Document: CHELSEA ALMARAZ RESIDENT Medical Necessity Reason Pt with a Central, PICC or Fol: No Subjective Review of Systems Patient was seen at bedside. She reports that she is feeling better. Had an episode of chest pain and throbbing headache yesterday night. Freddy León is a 39-year-old female with past medical history of anxiety and hypertension came with complaints of chest pain since 1 day. She rated the chest pain 6 on 10 in intensity, dull, radiating to bilateral shoulders and jaw with no aggravating or alleviating factors. She denies any fever or shortness of breath. She states has been having a lot of anxiety in the past week. She also reports of concomitant acid reflux while she was in the ER. Her blood pressure was 180/100 in the ER. PMHx:anxiety and hypertension PSHx: section, tubal ligation Family history: Not relevant Social history: Denies smoking, alcohol use, illicit drug use Home medication: Not on any home medication Allergic history: No known allergies General: patient denies fever, fatigue, weaknes, sweating, any recent changes in appetite and weight HEENT: No headaches, visiual changes, hearing loss, tinnitus, nasal congestion and discharge, and sore throat. Cardiovascular: Denies palpitations, dyspnea on exertion, orthopnea, or claudication. Complains of chest pain Respiratory: No cough, and wheezing. Gastrointestinal: Denies nausea, vomiting, dysphagia, odynophagia, heartburn, abdominal pain, flatulence, bloating, diarrhea, constipation, change in stool, or blood in stool. Genitourinary: No dysuria, hematuria, discharge, frequency, urgency, nocturia, incontinence, and urinary retention. Endocrine: No heat or cold intolerance, polydipsia, polyuria, and polyphagia. Neurological: No dizziness, extremity weakness and numbness, tremors, gait disturbance, seizures, and memory impairment. Psychiatric: Denies depression, anxiety,or insomnia. Musculoskeletal: Denies neck pain, stiffness and swelling, back pain, muscle weakness, joint pain, stiffness, swelling, or limited range of motion. Skin: No rashes, itching, skin lesion, changes in hair, nail, skin texture and breast. Hematologic/Lymphatic: Denies easy bruising, bleeding tendencies, or lymph node enlargement. Objective vital signs Vital Sign Date Time Temp Pulse Resp B/P (MAP) Pulse Ox O2 Delivery O2 Flow Rate FiO2 03/02/25 12:56 98.4 74 20 128/86 (100) 98 98.4 03/02/25 07:39 Room Air* 0 21 Total Intake and Output 03/01/25 03/01/25 03/02/25 14:59 22:59 06:59 Intake Total 1100 ml 500 ml Balance 1100 ml 500 ml medications Current Medications Medications Dose Ordered Sig/Mracia Route Start Time Stop Time Status Last Admin Dose Admin Acetaminophen/ Hydrocodone Bitart 1 tab Q4HP PRN PO 02/28/25 20:45 Ondansetron HCl 4 mg Q4HP PRN IV 02/28/25 20:45 Acetaminophen 650 mg Q6HP PRN PO 02/28/25 20:45 03/02/25 09:50 650 MG Losartan Potassium 25 mg DAILY PO 03/01/25 10:00 03/02/25 09:49 25 MG Hydralazine HCl 10 mg Q6HP PRN IV 02/28/25 20:45 02/28/25 23:29 10 MG Hydroxyzine Pamoate 25 mg Q6HP PRN PO 02/28/25 20:45 Examination General Appearance: Alert, Oriented X3, Cooperative, No acute distress HEENT: Atraumatic, PERRLA, EOMI, Mucous membrane moist/pink Respiratory: Clear to auscultation, Normal air movement Cardiovascular: Regular rate, Normal S1, Normal S2, No murmurs, no chest wall tenderness Abdominal: Normal bowel sounds, Soft, No tenderness, No hepatospenomegaly, No masses Extremities: No clubbing, No cyanosis, No edema, Normal pulses, No tenderness/swelling Skin: No rashes, No breakdown, No significant lesion Neuro: Normal gait, Normal speech, Strength at 5/5 X4 ext, Normal tone, Sensation intact, Cranial nerves 3-12 NL, Reflexes 2+ Psych/Mental Status: Mental status NL, Mood NL laboratory and microbiology Laboratory Tests 03/02/25 06:08 Test 03/02/25 06:08 Range/Units Serum Glucose 91 74-106 mg/dL Problem List/Assessment/Plan Problem List/Assessment/Plan Assessment/Plan #Hypertensive urgency #Chest pain due to above -Troponins negative -EKG : no signs of infarction -telemetry -UA -D-dimer 0.48 -BNP 28.65 -beta-hCG negative -Aspirin 162 mg p.o. once -Pain control with: -acetaminophen 650 mg p.o. q.6 PRN for mild pain -[place] 5/325 mg p.o. q.4 PRN for moderate pain -losartan 25 mg p.o. daily -hydralazine 10 mg IV q.6 PRN SBP> 170 mmHg -echo -Cardiac consult # Anxiety disorder Follow up with PCP on discharge DVT prophylaxis: Lovenox 40 mg subcutaneously daily Diet: Cardiac diet Case Discussed with Dr. Whiting Plan discussed with: Patient My Orders My Orders Orders - CHELSEA ALMARAZ Procedure Category Date Status Time Complete Blood Count LAB 03/03/25 Verified 04:00 Basic Metabolic Panel LAB 03/03/25 Verified 04:00 Date of Service: Mar 02, 2025 Billing Provider: DELON WHITING MD Common Visit Codes: [id number] INP/OBS CARE(HIGH) CHELSEA ALMARAZ Mar 02, 2025 16:14 DELON WHITING MD Mar 04, 2025 14:45
--- NOTE | 2025-03-03 00:03 | DVHPN2 ---
Progress Note - Dictate Date Seen: Mar 02, 2025 Medical Necessity Reason Pt with a Central, PICC or Fol: No Subjective Patient was seen and evaluated in follow up. Overnight, the patient reported an episode of chest pain and throbbing headache. Patient states symptoms have since resolved. CBC and CMP are WNL. Telemetry reviewed. vital signs Vital Sign Date Time Temp Pulse Resp B/P (MAP) Pulse Ox O2 Delivery O2 Flow Rate FiO2 03/02/25 12:56 98.4 74 20 128/86 (100) 98 98.4 03/02/25 07:39 Room Air* 0 21 Total Intake and Output 03/01/25 03/01/25 03/02/25 15:00 23:00 07:00 Intake Total 1100 ml 500 ml Balance 1100 ml 500 ml medications Current Medications Medications Dose Ordered Sig/Marcia Route Start Time Stop Time Status Last Admin Dose Admin Acetaminophen/ Hydrocodone Bitart 1 tab Q4HP PRN PO 02/28/25 20:45 Ondansetron HCl 4 mg Q4HP PRN IV 02/28/25 20:45 Acetaminophen 650 mg Q6HP PRN PO 02/28/25 20:45 03/02/25 09:50 650 MG Losartan Potassium 25 mg DAILY PO 03/01/25 10:00 03/02/25 09:49 25 MG Hydralazine HCl 10 mg Q6HP PRN IV 02/28/25 20:45 02/28/25 23:29 10 MG Hydroxyzine Pamoate 25 mg Q6HP PRN PO 02/28/25 20:45 objective GENERAL: Alert and oriented x 3. No acute distress. EYES: PERRL, EOMI. Anicteric. HENT: Moist mucous membranes. LUNGS: Clear to auscultation bilaterally. CARDIOVASCULAR: Regular rate and rhythm. ABDOMEN: Soft, nontender and nondistended. EXTREMITIES: No edema. NEUROLOGIC: No focal neurological deficits. SKIN: Warm, dry. laboratory and microbiology Laboratory Tests 03/02/25 06:08 Test 03/02/25 06:08 Range/Units Serum Glucose 91 74-106 mg/dL Problem List Chest pain. Anxiety. Assessment/Plan Continued all current supportive medical care. [place] for pain management. Losartan. Additional plan as per the hospital course. Plan discussed with: Patient LIN VICKERS MD Mar 02, 2025 16:28
[2025-03-03 01:00] VITALS: BP 118/56; PULSE 63; RESP 18; TEMP 98.2; O2SAT 100
[2025-03-03 05:00] VITALS: BP 117/71; PULSE 78; RESP 18; TEMP 98; O2SAT 98
[2025-03-03 06:07] LABS: Nucleated Red Blood Cells % 0.1 %
[2025-03-03 06:09] LABS: Hematocrit 36.7 % (36.0-46.0); Hemoglobin 11.9 g/dL (12.2-16.2); Mean Corpuscular Hemoglobin 26.1 pg (28.0-32.0); Mean Corpuscular Volume 80.3 fL (80.0-100.0)
[2025-03-03 06:20] LABS: Anion Gap 11 (5-15); Carbon Dioxide 24 mmol/L (20-31); Chloride 103 mmol/L (98-107); Potassium 4.1 mmol/L (3.5-5.1); Sodium 138 mmol/L (136-145)
[2025-03-03 06:21] LABS: Calcium 9.0 mg/dL (8.7-10.4)
[2025-03-03 06:26] LABS: BUN/Creatinine Ratio 12.5 (10.0-20.0); Blood Urea Nitrogen 9 mg/dL (9-23); Glucose 89 mg/dL (74-106)
[2025-03-03 08:00] VITALS: PULSE 67; RESP 16; O2SAT 97
[2025-03-03] MEDS ORDERED: REGADENOSON 0.4 MG/5 ML SYRG IV ONE (08:15)
[2025-03-03 09:00] VITALS: BP 116/74; PULSE 67; RESP 16; TEMP 98; O2SAT 98
--- NOTE | 2025-03-03 09:37 | DVHCARD ---
Cardiology Stress Test [place] Treadmill Stress Test [place] Referring MD: MD Gabino Protocol: Lenny (with cardiolite) Reason for referral: Chest Pain Target heart Rate:@85%: 153 Percent MPHR: 180 METS: 9.5 Resting Heart rate: 80 Resting Blood Pressure: 119/83 Exercise Heart Rate: 166 Exercise Blood Pressure: 158/77 Reason for Termination of Test: Shortness of breath Baseline EKG: NSR Stress EKG: Sinus tachycardia w/o ST-T wave segment changes Functional Capacity: Mildly Decreased Heart Rate Response: Adequate Blood Pressure Response: Hypertensive Clinical response: Non-ischemic Arrhythmia?: No Cardiolite Injected?: Yes ST-T Changes: Non/Minimal Probability of Inducible Ische: Perfusion result pending Comments: Uneventful Lenny protocol. Consider sleep study as outpatient Date of Service: Mar 03, 2025 Billing Provider: ALONA ROSALES Cardiology Common Codes: PROCEDURE ONLY Treadmill W/Cardiolite Nuclear: [id number], INTERP, RPT ALONA ROSALES Mar 03, 2025 09:37
[2025-03-03] MEDS ORDERED: LOS25T GT (10:41)
[2025-03-03 13:00] VITALS: BP 118/74; PULSE 76; RESP 18; TEMP 98.3; O2SAT 98
[2025-03-03] MEDS ORDERED: LOS25T PO (14:33)
--- NOTE | 2025-03-03 14:49 | DVHDSRES ---
Discharge Summary Date of Admission Resident Creating Document: CHELSEA ALMARAZ RESIDENT Feb 28, 2025 at 20:35 Date of Discharge: Mar 03, 2025 Labs/Diagnostic Data: Laboratory Results Test 03/03/25 04:36 03/02/25 06:08 03/01/25 03:00 02/28/25 19:43 White Blood Count 8.5 10^3/uL (4.4-10.8) Red Blood Count 4.57 10^6/uL (4.0-5.20) Hemoglobin 11.9 g/dL (12.2-16.2) Hematocrit 36.7 % (36.0-46.0) Mean Corpuscular Volume 80.3 fL (80.0-100.0) Mean Corpuscular Hemoglobin 26.1 pg (28.0-32.0) Mean Corpuscular Hemoglobin Concent 32.5 g/dL (32.0-36.0) Red Cell Distribution Width 16.0 % (11.8-14.3) Platelet Count 331 10^3/uL (140-450) Mean Platelet Volume 8.0 fL (6.9-10.8) Neutrophils (%) (Auto) 54.1 % (37.0-80.0) Lymphocytes (%) (Auto) 34.8 % (10.0-50.0) Monocytes (%) (Auto) 9.1 % (0.0-12.0) Eosinophils (%) (Auto) 1.4 % (0.0-7.0) Basophils (%) (Auto) 0.6 % (0.0-2.0) Neutrophils # (Auto) 4.6 10 ^3/uL (1.6-8.6) Lymphocytes # (Auto) 3.0 10 ^3/uL (0.4-5.4) Monocytes # (Auto) 0.8 10 ^3/uL (0-1.3) Eosinophils # (Auto) 0.1 10 ^3/uL (0-0.8) Basophils # (Auto) 0 10 ^3/uL (0-0.2) Nucleated Red Blood Cells 0.1 % Sodium Level 138 mmol/L (136-145) Potassium Level 4.1 mmol/L (3.5-5.1) Chloride Level 103 mmol/L (98-107) Carbon Dioxide Level 24 mmol/L (20-31) Anion Gap 11 (5-15) Blood Urea Nitrogen 9 mg/dL (9-23) Creatinine 0.72 mg/dL (0.550-1.02) Glomerular Filtration Rate Calc 108 mL/min (>90) BUN/Creatinine Ratio 12.5 (10.0-20.0) Serum Glucose 89 mg/dL (74-106) Calcium Level 9.0 mg/dL (8.7-10.4) Total Bilirubin 0.4 mg/dL (0.2-1.0) Aspartate Amino Transferase (AST) 17 U/L (13-40) Alanine Aminotransferase (ALT) 17 U/L (7-40) Alkaline Phosphatase 74 U/L (46-116) Total Protein 7.8 g/dL (5.7-8.2) Albumin 4.3 g/dL (3.2-4.8) Thyroid Stimulating Hormone (TSH) 1.21 uIU/mL (0.55-4.78) Urine Color Colorless (Yellow) Urine Clarity Clear (Clear) Urine pH 6.5 (5.0-9.0) Urine Specific [place] 1.009 (1.001-1.035) Urine Protein Negative (Negative) Urine Ketones Negative (Negative) Urine Blood Negative /uL (Negative) Urine Nitrite Negative (Negative) Urine Bilirubin Negative (Negative) Urine Urobilinogen Normal mg/dL (Negative) Urine Leukocyte Esterase Negative /uL (Negative) Urine RBC None seen /hpf (0 - 4) Urine Microscopic WBC < 1 /HPF (0-5) Urine Squamous Epithelial Cells Few /hpf (<5) Urine Bacteria None seen /hpf (None Seen) Urine Glucose Normal mg/dL (Normal) Magnesium Level 1.9 mg/dL (1.6-2.6) Direct Bilirubin < 0.1 mg/dL (<0.3) Troponin I High Sensitivity < 3 ng/L (</=34) Beta HCG, Quantitative < 0.0 mIU/mL (1.5-4.2) Test 02/28/25 16:49 D-Dimer, Quantitative 0.48 mg/L FEU (0.0-0.49) B-Type Natriuretic Peptide 28.65 pg/mL (0-100) Other Laboratory Tests 03/03/25 04:36 Brief Hx & Hospital Course: Freddy León is a 39-year-old female with a history of anxiety and hypertension who presented with one day of dull, non-exertional chest pain rated 6/10, radiating to both shoulders and jaw, without clear aggravating or relieving factors. She denied fever or shortness of breath but reported increased anxiety over the past week and experienced acid reflux while in the ER, where her blood pressure was elevated at 180/100. A chest X-ray showed no cardiopulmonary disease, and a cardiolite stress test was negative following cardiology consultation. The cardiology team recommended an outpatient sleep study, which was discussed with the patient. Her hospital course was uncomplicated, with clinical improvement noted. On discharge, she was asymptomatic with stable vital signs and no need for durable medical equipment. A work/sick note was provided. Medical Conditions treated in hospital: #Hypertensive urgency #Chest pain ACS ruled out, -ve stress test #Anxiety disorder, non on home meds. Needs PCP follow up. #Uncontrolled essential hypertension #Grade I obesity #Yet to rule out obstructive sleep apnea, outpatient sleep study pending. #Medication nonadherence #poor medical follow up. Consults/Reason for consult Cardiology Operations or Procedures [place] [address] Ph: [phone] DIAGNOSTIC IMAGING Diagnostic Imaging Report : [id number] Signed PATIENT: FREDDY LEÓN ACCT: [id number] UNIT: [id number] : 1985 LOC: ER ROOM / BED: / AGE / SEX: 39 / F ADM STATUS: REG ER SERVICE [id number] ORDERING PHYSICIAN: OG CUADRA MD PROCEDURE(s): CXR2 - CHEST TWO VIEWS ROUTINE REASON: CP ORDER NUMBER(s): [id number], ACCESSION NUMBER(s): [id number] CHEST TWO VIEWS ROUTINE CLINICAL HISTORY: CP COMPARISON: CHEST TWO VIEWS ROUTINE on DOS: 10/23/21, CXR2 on DOS: 10/23/21 TECHNIQUE: Frontal and lateral view of the chest was obtained FINDINGS: Lines and Tubes: None Lungs: No focal consolidation. Pleura: No effusion. No pneumothorax. Cardiomediastinal contours: Unremarkable Bones: No acute osseous abnormality. IMPRESSION: 1. No acute cardiopulmonary disease. ATED BY: CHAMP BHAKTA Jr., DO DICTATED DATE/TIME: 02/28/251900 SIGNED BY: CHAMP BHAKTA Jr., SIGNED DATE/TIME: 02/28/251900 CC: [address] [address] Ph: [phone] DIAGNOSTIC IMAGING Diagnostic Imaging Report : [id number] Signed PATIENT: FREDDY LEÓN ACCT: [id number] UNIT: [id number] : 1985 LOC: TELE-CENTR ROOM / BED: 0206T / A AGE / SEX: 39 / F ADM STATUS: ADM IN SERVICE 34 ORDERING PHYSICIAN: DMITRY CABRERA RESIDENT PROCEDURE(s): ECIDC - ECHO 2D MODE CARDIAC DOP REASON: chest pain ORDER NUMBER(s): [id number], ACCESSION NUMBER(s): [id number] APPROVED REPORT EXAM: Two-dimensional and M-mode echocardiogram with Doppler and color Doppler. Blood Pressure: 125/67 mmHg INDICATION Chest Pain RISK FACTORS Height: 5'2, Weight: 182 DIMENSIONS LVDd 4.8 (3.8-5.7cm) LA (2D) 3.8 (1.9-4.0cm) Aortic Root 2.7 (2.0- 3.7cm) LVDs 3.3 (2.5-4.0cm) LA (MM) (1.9-4.0cm) Aortic Cusp Exc 1.7 (1.5- 2.0cm) EF (%) 60.0 (55-70%) Rt. Atrium 3.0 (1.9-4.0cm) Asc. Aorta cm IVSd 0.7 (0.7-1.1cm) RV (D) 3.5 (1.8-2.4cm) PWd 0.8 (0.7-1.1cm) Mitral Valve Mitral Mitral Stenosis E wave 0.77m/s MV Mean GR. mmHg A wave 0.65m/s MV Peak GR. 39mmHg E/A ratio 1.2 2D MVA cm2 DECEL Time 214ms PRESS 1/2 Time ms Aortic Valve Aortic Valve Aortic Stenosis V1 0.88m/s AO Mean GR. 5mmHg V2 1.42m/s AO Peak GR. 8mmHg LVOT Diameter 2.0 (1.8-2.4cm) Doppler DISHA 1.95cm2 Pulmonic Valve V2 0.93m/s Other Information Technically limited study due to body habitus. Conclusion LV EF IS 65% NORMAL VALVES NORMAL RV FUNCTION NO EFFUSION SIGNED BY: LIN VICKERS MD SIGNED DATE/TIME: 03/01/252010 CC: EKG Name: FREDDY LEÓN Acct: [id number] [place] [address] ELECTROCARDIOGRAM REPORT PATIENT: FREDDY LEÓN ACCT: [id number] : 1985 LOC: [facility] AGE / SEX: 39 / F ADM STATUS: ADM IN SERVICE UNIT: [id number] ORDERING PHYSICIAN: OG CUADRA MD PROCEDURE(s): EKG - ELECTROCARDIGRAM ORDER NUMBER(s): [id number], ACCESSION NUMBER(s): [id number] [facility] Test Date: 2025-02-28 Test Time: 17:31:21 Pat Name: FREDDY LEÓN Department: Room: [facility] Gender: F [place] Machine Operator: TAWNY : 1985 Requested By: OG CUADRA Order Number: [id number] Reading MD: Pratima Raymond Measurements Intervals [place] Rate: 63 P: 23 NM: 157 QRS: -13 QRSD: 105 T: 1 QT: 393 QTc: 403 Interpretive Statements Sinus rhythm Left ventricular hypertrophy Borderline T abnormalities, anterior leads Electronically Signed On 03-02-2025 13:37:14 PST by Pratima Raymond Please click the below link to view image of tracing. DICTATED BY:PRATIMA RAYMOND Sr., MD DICTATED DATE/TIME:02/28/25 1731 ELECTRONICALLY SIGNED BY:PRATIMA RAYMOND Sr., MD 03/02/25 1337 ELECTRONICALLY CO-SIGNED BY: Condition at Discharge: Fair Final Diagnosis/Problems List #Hypertensive urgency #Chest pain ACS ruled out, -ve stress test #Anxiety disorder, non on home meds. Needs PCP follow up. #Uncontrolled essential hypertension #Grade I obesity #Yet to rule out obstructive sleep apnea, outpatient sleep study pending. #Medication nonadherence #poor medical follow up. Discharge Disposition: Home Discharge Instruct/Medications Diet: Regular Activity: No Restrictions, As Tolerated Follow Up/Referral: F/u with PCP in 7 days Medications: Losartan 25 mg 1 tab orally everyday Scheduled Losartan Potassium (Losartan Potassium), 25 MG PO DAILY Discharge Statement: "Patient was advised to return to the ER or call 911 if any headaches, dizziness, shortness of breath, chest pain, abdominal pain, bleeding, fevers, or worsening of medical condition. Patient was counseled about treatment plan, medications, possible side effects, patientverbalized understanding. All questions were answered to the best of my ability. This discharge took greater then 30 minutes in planning, reviewing documentation, counseling the patient, and discussing with other team members." ASSESSMENT ASSESSMENT Assessment Hypertensive Urgency Chest pain due to above Date of Service: Mar 03, 2025 Billing Provider: DELON DA SILVA MD Common Visit Codes: 40104-BXH/[id number] DISCH DAY >30min CHELSEA ALMARAZ RESIDENT Mar 03, 2025 14:49 NICKY HAMILTON RESIDENT Mar 03, 2025 18:06 OSEAS WICK RESIDENT Mar 03, 2025 18:42 DELON DA SILVA MD Mar 04, 2025 14:46
[2025-03-03 17:00] VITALS: BP 114/66; PULSE 83; RESP 18; TEMP 98.2; O2SAT 98
--- NOTE | 2025-03-04 00:02 | DVHPN2 ---
Progress Note - Dictate Date Seen: Mar 03, 2025 Medical Necessity Reason Pt with a Central, PICC or Fol: No Subjective Patient was seen and evaluated in follow up. No overnight events. Patient is undergoing cardiac stress test today. Patient denies any cardiac symptoms. Telemetry reviewed. vital signs Vital Sign Date Time Temp Pulse Resp B/P (MAP) Pulse Ox O2 Delivery O2 Flow Rate FiO2 03/03/25 10:14 116/74 03/03/25 09:00 98.0 67 16 98 98.0 03/03/25 08:00 Room Air* 0 21 Total Intake and Output 03/02/25 03/02/25 03/03/25 15:00 23:00 07:00 Intake Total 1280 ml Output Total 1 ml Balance 1279 ml medications Current Medications Medications Dose Ordered Sig/Marcia Route Start Time Stop Time Status Last Admin Dose Admin Acetaminophen/ Hydrocodone Bitart 1 tab Q4HP PRN PO 02/28/25 20:45 Ondansetron HCl 4 mg Q4HP PRN IV 02/28/25 20:45 Acetaminophen 650 mg Q6HP PRN PO 02/28/25 20:45 03/02/25 09:50 650 MG Losartan Potassium 25 mg DAILY PO 03/01/25 10:00 03/03/25 10:14 25 MG Hydralazine HCl 10 mg Q6HP PRN IV 02/28/25 20:45 02/28/25 23:29 10 MG Hydroxyzine Pamoate 25 mg Q6HP PRN PO 02/28/25 20:45 objective GENERAL: Alert and oriented x 3. No acute distress. EYES: PERRL, EOMI. Anicteric. HENT: Moist mucous membranes. LUNGS: Clear to auscultation bilaterally. CARDIOVASCULAR: Regular rate and rhythm. ABDOMEN: Soft, nontender and nondistended. EXTREMITIES: No edema. NEUROLOGIC: No focal neurological deficits. SKIN: Warm, dry. laboratory and microbiology Laboratory Tests 03/03/25 04:36 Test 03/03/25 04:36 Range/Units Serum Glucose 89 74-106 mg/dL Problem List Chest pain. Anxiety. Assessment/Plan Continued all current supportive medical care. [place] for pain management. Losartan. Additional plan as per the hospital course. Plan discussed with: Patient LIN VICKERS MD Mar 03, 2025 12:26
== END 2025-03-03 16:08 | disposition home or self-care (01) | DRG 305 ==
LOC: ER 16:41 → OVERFLOW 20:35 → EEVIPCON 20:35 → CENTRAL 20:50 → TELE-WESTW 23:09 → TELE-CENTR 03-01 05:00 → CENTRAL 03-02 16:22
PROVIDERS: ADMIT Internal Medicine Geriatric Medicine; ATTEND Internal Medicine Geriatric Medicine
DX: I16.0 Hypertensive urgency (principal); I51.3 Intracardiac thrombosis, not elsewhere classified; E66.811 Obesity, class 1; F41.9 Anxiety disorder, unspecified; G47.33 Obstructive sleep apnea (adult) (pediatric); Z68.33 Body mass index [BMI] 33.0-33.9, adult; Z98.51 Tubal ligation status; Z83.3 Family history of diabetes mellitus; Z80.9 Family history of malignant neoplasm, unspecified; Z82.49 Family history of ischemic heart disease and other diseases of the circulatory system; Z79.899 Other long term (current) drug therapy
CPT/HCPCS: 36415; 71046; 80048; 80053; 80076; 81001; 83735; 83880; 84443; 84484; 84702; 85025; 85379; 93005; 93017; 93306; 99291; G0378